=== PATIENT | male | born 1970 | race Caucasian/White ===

== ENCOUNTER 2018-07-07 15:45 | Inpatient (IN) | payer MEDICAID ==
[~2018-07-07] VITALS: Ht 182.9 cm; Wt 96.0 kg
[~2018-07-07 15:45] MED LIST: AMOX1TAB64 PO
[2018-07-07] MEDS ORDERED: VANCOMYCIN PER PHARMACY MC ONE (17:00)
[2018-07-07] MEDS ORDERED: PIPERACILLIN/TAZO/PMX 3.375GM 50 ML IV ONE (17:00)
[2018-07-07 17:12] LABS: BASOPHILS # (AUTO) 0.02 x10^3/uL (0-0.1); BASOPHILS % (AUTO) 0 % (0-1); EOSINOPHILS # (AUTO) 0.29 x10^3/uL (0-0.4); EOSINOPHILS % (AUTO) 3 % (1-7); LYMPHOCYTES # (AUTO) 2.52 x10^3/uL (1-3.4); LYMPHOCYTES % (AUTO) 29 % (22-44); MD NO; MEAN CORPUSCULAR HEMOGLOBIN 31.2 pg (27.5-34.5); MEAN CORPUSCULAR HGB CONC 33.2 g/dL (33.2-36.2); MEAN CORPUSCULAR VOLUME 94.2 fL (81-97); MEAN PLATELET VOLUME 8.7 fL (7.4-10.4); MONOCYTES # (AUTO) 0.65 x10^3/uL (0.2-0.8); MONOCYTES % (AUTO) 8 % (2-9); NEUTROPHILS # (AUTO) 5.13 x10^3/uL (1.8-6.8); NEUTROPHILS % (AUTO) 60 % (42-75); PLATELET COUNT 349 x10^3/uL (130-400); RED CELL DISTRIBUTION WIDTH 12.9 % (9.4-14.8)
[2018-07-07 17:21] LABS: ALBUMIN 4.4 g/dL (3.4-5.0); ANION GAP 5 mmol/L (5-15); CALCIUM 9.1 mg/dL (8.5-10.1); CHLORIDE 109 mmol/L (98-107); CREATININE 0.99 mg/dL (0.7-1.3)
[2018-07-07] MEDS ORDERED: VANCOMYCIN 1,800 MG in SODIUM CHLORIDE 0.9% 250 ML IV ONE (17:30)
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
--- NOTE | 2018-07-07 18:00 | NUR ---
BC X 2 DRAWN.
[2018-07-07] MEDS ORDERED: PIPERACILLIN/TAZO/PMX 3.375GM 50 ML ONE (18:03)
--- NOTE | 2018-07-07 18:25 | NUR ---
FREDIS AT BEDSIDE TO SEE PTEmily
[2018-07-07] MEDS ORDERED: SODIUM CHLORIDE 0.9% 2,000 ML IV SCH (19:03)
[2018-07-07] MEDS ORDERED: ACETAMINOPHEN 325 MG TABLET ONE (19:29)
[2018-07-07] MEDS ORDERED: ACETAMINOPHEN 325 MG TABLET PO PRN (19:30)
[2018-07-07 20:25] VITALS: BP 122/80
[2018-07-07 20:30] VITALS: BP 122/80
[2018-07-07] MEDS: AMPICILLIN/SULBACTAM 3 GM in SODIUM CHLORIDE 0.9% 100 ML IV SCH (21:53)
[2018-07-07] MEDS: NICOTINE 14MG/24 HR PATCH.TD24 TD SCH (21:53)
[2018-07-08 03:09] VITALS: BP 113/74
[2018-07-08] MEDS: AMPICILLIN/SULBACTAM 3 GM in SODIUM CHLORIDE 0.9% 100 ML IV SCH ×3 (04:04→18:35)
[2018-07-08 05:17] LABS: BASOPHILS # (AUTO) 0.02 x10^3/uL (0-0.1); BASOPHILS % (AUTO) 0 % (0-1); EOSINOPHILS # (AUTO) 0.28 x10^3/uL (0-0.4); EOSINOPHILS % (AUTO) 5 % (1-7); LYMPHOCYTES # (AUTO) 1.93 x10^3/uL (1-3.4); LYMPHOCYTES % (AUTO) 33 % (22-44); MD NO; MEAN CORPUSCULAR HEMOGLOBIN 31.9 pg (27.5-34.5); MEAN CORPUSCULAR HGB CONC 33.9 g/dL (33.2-36.2); MEAN CORPUSCULAR VOLUME 93.8 fL (81-97); MONOCYTES # (AUTO) 0.45 x10^3/uL (0.2-0.8); MONOCYTES % (AUTO) 8 % (2-9); NEUTROPHILS # (AUTO) 3.13 x10^3/uL (1.8-6.8); NEUTROPHILS % (AUTO) 54 % (42-75); PLATELET COUNT 310 x10^3/uL (130-400)
[2018-07-08 05:32] LABS: CHLORIDE 113 mmol/L (98-107)
[2018-07-08 05:39] LABS: ALANINE AMINOTRANSFERASE 31 U/L (12-78); ALBUMIN 3.4 g/dL (3.4-5.0); ALKALINE PHOSPHATASE 84 U/L (45-117); ANION GAP 5 mmol/L (5-15); BILIRUBIN,TOTAL 0.8 mg/dL (0.2-1.0); CALCIUM 8.2 mg/dL (8.5-10.1); CREATININE 0.91 mg/dL (0.7-1.3); TOTAL PROTEIN 6.6 g/dL (6.4-8.2)
[2018-07-08 06:56] VITALS: BP 118/82
[2018-07-08] MEDS: ENOXAPARIN 40 MG/0.4 ML SQ SCH (09:00)
[2018-07-08 12:00] VITALS: BP 122/80
[2018-07-08] MEDS ORDERED: LIDOCAINE 1%-EPI 1:100K, 30ML ONE (14:33)
[2018-07-08] MEDS ORDERED: MIDAZOLAM 1 MG/ML, 2ML ONE (14:39)
[2018-07-08] MEDS ORDERED: FENTANYL PF 100 MCG/2ML ONE (14:39)
[2018-07-08] MEDS ORDERED: PROPOFOL 10 MG/ML, 20ML ONE (14:45)
[2018-07-08 18:03] LABS: HCT (SEDRATE) 41.3 % (39.2-51.8)
[2018-07-08 18:40] VITALS: BP 111/66
[2018-07-08] MEDS: NICOTINE 14MG/24 HR PATCH.TD24 TD SCH ×2 (21:00→22:24)
[2018-07-09] MEDS: AMPICILLIN/SULBACTAM 3 GM in SODIUM CHLORIDE 0.9% 100 ML IV SCH ×4 (01:06→20:16)
[2018-07-09 01:34] VITALS: BP 125/71
[2018-07-09 05:04] LABS: BASOPHILS # (AUTO) 0.02 x10^3/uL (0-0.1); BASOPHILS % (AUTO) 0 % (0-1); EOSINOPHILS % (AUTO) 5 % (1-7); LYMPHOCYTES # (AUTO) 2.39 x10^3/uL (1-3.4); LYMPHOCYTES % (AUTO) 37 % (22-44); MD NO; MEAN CORPUSCULAR HEMOGLOBIN 31.1 pg (27.5-34.5); MEAN CORPUSCULAR HGB CONC 33.1 g/dL (33.2-36.2); MEAN PLATELET VOLUME 8.8 fL (7.4-10.4); MONOCYTES # (AUTO) 0.57 x10^3/uL (0.2-0.8); MONOCYTES % (AUTO) 9 % (2-9); NEUTROPHILS # (AUTO) 3.24 x10^3/uL (1.8-6.8); NEUTROPHILS % (AUTO) 50 % (42-75); PLATELET COUNT 304 x10^3/uL (130-400); RED BLOOD COUNT 4.63 x10^6/uL (4.38-5.82)
[2018-07-09 05:14] LABS: ANION GAP 3 mmol/L (5-15); CALCIUM 8.8 mg/dL (8.5-10.1); CHLORIDE 110 mmol/L (98-107)
[2018-07-09 07:35] VITALS: BP 122/81
[2018-07-09] MEDS: ENOXAPARIN 40 MG/0.4 ML SQ SCH (08:24)
[2018-07-09] MEDS: NICOTINE 14MG/24 HR PATCH.TD24 TD SCH (09:13)
[2018-07-09 13:56] VITALS: BP 125/79
[2018-07-09 18:27] VITALS: BP 128/80
[2018-07-10 01:26] VITALS: BP 130/75
[2018-07-10] MEDS: AMPICILLIN/SULBACTAM 3 GM in SODIUM CHLORIDE 0.9% 100 ML IV SCH ×4 (02:59→20:29)
[2018-07-10 06:55] VITALS: BP 120/72
[2018-07-10] MEDS: ENOXAPARIN 40 MG/0.4 ML SQ SCH (08:37)
[2018-07-10] MEDS ORDERED: MIDAZOLAM 1 MG/ML, 2ML ONE (09:39)
[2018-07-10] MEDS ORDERED: FENTANYL PF 250 MCG/5ML ONE (09:39)
[2018-07-10] MEDS ORDERED: OXYMETAZOLINE NASAL SPRAY 0.05%, 15ML ONE (11:20)
[2018-07-10] MEDS ORDERED: OXYcodone 5 MG/5 ML ORAL.SOL UDC PO PRN (11:30)
[2018-07-10] MEDS ORDERED: HYDROmorphone 2 MG/ML, 1ML IVPush PRN (11:30)
[2018-07-10] MEDS ORDERED: FENTANYL PF 100 MCG/2ML IV PRN (11:30)
[2018-07-10] MEDS ORDERED: MORPHINE SULFATE 4 MG/ML, 1ML IVPush PRN (11:30)
[2018-07-10] MEDS ORDERED: PROMETHAZINE 25 MG/ML, 1ML IV PRN (11:30)
[2018-07-10] MEDS ORDERED: ONDANSETRON ODT 8 MG PO PRN (11:30)
[2018-07-10] MEDS ORDERED: hydrALAzine 20 MG/ML, 1ML IV PRN (11:30)
[2018-07-10] MEDS ORDERED: MEPERIDINE/PF 25MG/0.5ML IVPush PRN (11:30)
[2018-07-10] MEDS ORDERED: LABETALOL 5MG/ML, 20ML IV PRN (11:30)
[2018-07-10] MEDS ORDERED: ONDANSETRON 2MG/ML, 2ML IV PRN (11:30)
[2018-07-10] MEDS ORDERED: PROMETHAZINE 25 MG SUPP PR PRN (11:30)
[2018-07-10] MEDS ORDERED: PROMETHAZINE 12.5 MG SUPP PR PRN (11:30)
[2018-07-10] MEDS ORDERED: PROMETHAZINE 25 MG/ML, 1ML IM PRN ×2 (11:30)
[2018-07-10] MEDS ORDERED: LIDOCAINE 1%-EPI 1:100K, 30ML ONE (11:33)
[2018-07-10] MEDS ORDERED: PROPOFOL 10 MG/ML, 20ML ONE (11:49)
[2018-07-10] MEDS ORDERED: ROCURONIUM 10MG/ML,5ML ONE (11:49)
[2018-07-10] MEDS ORDERED: GLYCOPYRROLATE 0.4 MG/2 ML, 2ML ONE (11:50)
[2018-07-10] MEDS ORDERED: NEOSTIGMINE 1 MG/ML, 10ML ONE (11:50)
[2018-07-10] MEDS ORDERED: LIDOCAINE 1%-EPI 1:100K, 30ML INFIL ONE (12:03)
[2018-07-10] MEDS ORDERED: OXYcodone 5 MG/5 ML ORAL.SOL UDC ONE (12:39)
[2018-07-10] MEDS ORDERED: FENTANYL PF 100 MCG/2ML ONE (12:39)
[2018-07-10] MEDS: IBUPROFEN 600 MG TABLET PO PRN (15:45)
[2018-07-10 16:15] VITALS: BP 132/84
[2018-07-10 19:17] VITALS: BP 98/58
[2018-07-10] MEDS: NICOTINE 14MG/24 HR PATCH.TD24 TD SCH (20:31)
[2018-07-11] MEDS: NICOTINE 14MG/24 HR PATCH.TD24 TD SCH (00:26)
[2018-07-11 00:41] VITALS: BP 103/61
[2018-07-11] MEDS: AMPICILLIN/SULBACTAM 3 GM in SODIUM CHLORIDE 0.9% 100 ML IV SCH ×2 (02:31→08:45)
[2018-07-11 07:03] VITALS: BP_SYST 105; BP_SYST 147; BP_DIAS 70; BP_DIAS 75
[2018-07-11] MEDS: ENOXAPARIN 40 MG/0.4 ML SQ SCH (07:57)
[2018-07-11] MEDS: IBUPROFEN 600 MG TABLET PO PRN (10:24)
[2018-07-11] MEDS ORDERED: PIPERACILLIN/TAZO/PMX 3.375GM 50 ML IV SCH (12:00)
[2018-07-11] MEDS: ERTAPENEM 1 GM in SODIUM CHLORIDE 0.9% 50 ML IV SCH (12:42)
[2018-07-11 13:46] VITALS: BP 112/71
[2018-07-11 19:19] VITALS: BP 119/80
[2018-07-12 01:20] VITALS: BP 104/68
[2018-07-12 07:00] VITALS: BP 119/79
[2018-07-12] MEDS: ENOXAPARIN 40 MG/0.4 ML SQ SCH (08:18)
[2018-07-12] MEDS: ERTAPENEM 1 GM in SODIUM CHLORIDE 0.9% 50 ML IV SCH (12:25)
[2018-07-12 14:54] VITALS: BP 129/82
[2018-07-12 18:36] VITALS: BP 103/71
[2018-07-12] MEDS: NICOTINE 14MG/24 HR PATCH.TD24 TD SCH (19:52)
[2018-07-13 00:13] VITALS: BP 106/68
[2018-07-13 05:09] LABS: BASOPHILS # (AUTO) 0.03 x10^3/uL (0-0.1); BASOPHILS % (AUTO) 0 % (0-1); EOSINOPHILS # (AUTO) 0.21 x10^3/uL (0-0.4); EOSINOPHILS % (AUTO) 3 % (1-7); LYMPHOCYTES # (AUTO) 1.89 x10^3/uL (1-3.4); LYMPHOCYTES % (AUTO) 24 % (22-44); MD NO; MEAN CORPUSCULAR HGB CONC 34.3 g/dL (33.2-36.2); MEAN CORPUSCULAR VOLUME 93.2 fL (81-97); MONOCYTES # (AUTO) 0.62 x10^3/uL (0.2-0.8); MONOCYTES % (AUTO) 8 % (2-9); NEUTROPHILS # (AUTO) 5.05 x10^3/uL (1.8-6.8); NEUTROPHILS % (AUTO) 65 % (42-75); PLATELET COUNT 320 x10^3/uL (130-400); RED BLOOD COUNT 5.02 x10^6/uL (4.38-5.82); RED CELL DISTRIBUTION WIDTH 12.5 % (9.4-14.8)
[2018-07-13] MEDS ORDERED: ONDANSETRON 2MG/ML, 2ML ONE (05:12)
[2018-07-13 05:20] LABS: CHLORIDE 108 mmol/L (98-107)
[2018-07-13 05:25] LABS: ALANINE AMINOTRANSFERASE 24 U/L (12-78); ALBUMIN 3.9 g/dL (3.4-5.0); ALKALINE PHOSPHATASE 86 U/L (45-117); ANION GAP 7 mmol/L (5-15); BILIRUBIN,TOTAL 0.4 mg/dL (0.2-1.0); C-REACTIVE PROTEIN, QUANT 0.55 mg/dL (0.02-0.49); CALCIUM 9.1 mg/dL (8.5-10.1); CREATININE 0.98 mg/dL (0.7-1.3); TOTAL PROTEIN 7.8 g/dL (6.4-8.2)
[2018-07-13] MEDS ORDERED: ONDANSETRON 2MG/ML, 2ML IVPush PRN (05:30)
[2018-07-13] MEDS ORDERED: ONDANSETRON ODT 4 MG PO PRN (05:30)
[2018-07-13 06:45] VITALS: BP 108/71
[2018-07-13] MEDS: ENOXAPARIN 40 MG/0.4 ML SQ SCH (09:00)
[2018-07-13] MEDS: ERTAPENEM 1 GM in SODIUM CHLORIDE 0.9% 50 ML IV SCH (11:32)
[2018-07-13 13:06] VITALS: BP 111/67
[2018-07-13 19:36] VITALS: BP 111/73
[2018-07-13] MEDS: NICOTINE 14MG/24 HR PATCH.TD24 TD SCH (21:47)
[2018-07-14 02:51] VITALS: BP 93/59
[2018-07-14 06:51] VITALS: BP 113/69
[2018-07-14] MEDS: ENOXAPARIN 40 MG/0.4 ML SQ SCH (09:35)
[2018-07-14] MEDS: ERTAPENEM 1 GM in SODIUM CHLORIDE 0.9% 50 ML IV SCH (12:20)
[2018-07-14 13:26] VITALS: BP 109/71
[2018-07-14 19:33] VITALS: BP 112/72
[2018-07-14] MEDS: NICOTINE 14MG/24 HR PATCH.TD24 TD SCH (19:39)
[2018-07-15] MEDS ORDERED: CATHFLO-ALTEPLASE 2 MG/2 ML CATHFLUSH ONE (00:30)
[2018-07-15 02:10] VITALS: BP 101/67
[2018-07-15 07:41] VITALS: BP 112/74
[2018-07-15] MEDS: ENOXAPARIN 40 MG/0.4 ML SQ SCH (08:10)
[2018-07-15] MEDS: ERTAPENEM 1 GM in SODIUM CHLORIDE 0.9% 50 ML IV SCH (11:30)
[2018-07-15 14:08] VITALS: BP 120/74
[2018-07-15 19:30] VITALS: BP 115/71
[2018-07-15] MEDS: NICOTINE 14MG/24 HR PATCH.TD24 TD SCH (20:15)
[2018-07-16 01:56] VITALS: BP 104/67
[2018-07-16 07:23] VITALS: BP 112/73
[2018-07-16] MEDS: ENOXAPARIN 40 MG/0.4 ML SQ SCH (08:15)
[2018-07-16] MEDS: ERTAPENEM 1 GM in SODIUM CHLORIDE 0.9% 50 ML IV SCH (11:40)
[2018-07-16 13:42] VITALS: BP 115/78
[2018-07-16 20:04] VITALS: BP 114/78
[2018-07-16] MEDS: NICOTINE 14MG/24 HR PATCH.TD24 TD SCH (20:15)
[2018-07-17 00:30] VITALS: BP 120/68
[2018-07-17 06:46] VITALS: BP 118/75
[2018-07-17] MEDS: ENOXAPARIN 40 MG/0.4 ML SQ SCH (08:17)
[2018-07-17] MEDS: ERTAPENEM 1 GM in SODIUM CHLORIDE 0.9% 50 ML IV SCH (11:18)
[2018-07-17 12:50] VITALS: BP 127/79
[2018-07-17 19:32] VITALS: BP 132/66
[2018-07-17] MEDS: NICOTINE 14MG/24 HR PATCH.TD24 TD SCH (20:01)
[2018-07-18 00:05] VITALS: BP 136/61
[2018-07-18 06:57] VITALS: BP 117/80
[2018-07-18] MEDS: ENOXAPARIN 40 MG/0.4 ML SQ SCH (09:18)
[2018-07-18] MEDS: ERTAPENEM 1 GM in SODIUM CHLORIDE 0.9% 50 ML IV SCH (12:43)
[2018-07-18 13:28] VITALS: BP 112/73
[2018-07-18 18:53] VITALS: BP 95/57
[2018-07-18] MEDS: NICOTINE 14MG/24 HR PATCH.TD24 TD SCH (20:30)
[2018-07-19 01:05] VITALS: BP 104/70
[2018-07-19 06:44] LABS: BASOPHILS # (AUTO) 0.02 x10^3/uL (0-0.1); BASOPHILS % (AUTO) 0 % (0-1); EOSINOPHILS # (AUTO) 0.23 x10^3/uL (0-0.4); EOSINOPHILS % (AUTO) 4 % (1-7); HCT (SEDRATE) 45.2 % (39.2-51.8); LYMPHOCYTES % (AUTO) 38 % (22-44); MD NO; MEAN CORPUSCULAR HEMOGLOBIN 32.4 pg (27.5-34.5); MEAN CORPUSCULAR HGB CONC 34.8 g/dL (33.2-36.2); MEAN PLATELET VOLUME 8.9 fL (7.4-10.4); MONOCYTES % (AUTO) 8 % (2-9); NEUTROPHILS # (AUTO) 3.11 x10^3/uL (1.8-6.8); NEUTROPHILS % (AUTO) 50 % (42-75); PLATELET COUNT 297 x10^3/uL (130-400); RED BLOOD COUNT 4.85 x10^6/uL (4.38-5.82); RED CELL DISTRIBUTION WIDTH 12.7 % (9.4-14.8)
[2018-07-19 06:59] LABS: ALANINE AMINOTRANSFERASE 21 U/L (12-78); ALBUMIN 3.8 g/dL (3.4-5.0); ANION GAP 6 mmol/L (5-15); C-REACTIVE PROTEIN, QUANT 0.23 mg/dL (0.02-0.49); CALCIUM 8.8 mg/dL (8.5-10.1); CHLORIDE 106 mmol/L (98-107); CREATININE 0.94 mg/dL (0.7-1.3)
[2018-07-19 07:01] LABS: ALKALINE PHOSPHATASE 89 U/L (45-117); BILIRUBIN,TOTAL 0.7 mg/dL (0.2-1.0); TOTAL PROTEIN 7.7 g/dL (6.4-8.2)
[2018-07-19] MEDS: ENOXAPARIN 40 MG/0.4 ML SQ SCH (07:07)
[2018-07-19 09:04] VITALS: BP 115/77
[2018-07-19] MEDS: ERTAPENEM 1 GM in SODIUM CHLORIDE 0.9% 50 ML IV SCH (12:27)
[2018-07-19 12:56] VITALS: BP 116/73
[2018-07-19] MEDS ORDERED: IBUPROFEN 600 MG TABLET PO PRN (17:00)
[2018-07-19 20:28] VITALS: BP 105/67
[2018-07-19] MEDS: OMEPRAZOLE 20 MG CAPSULE.DR PO SCH (20:51)
[2018-07-19] MEDS: NICOTINE 14MG/24 HR PATCH.TD24 TD SCH (20:51)
[2018-07-20 02:24] VITALS: BP 101/63
[2018-07-20] MEDS: OMEPRAZOLE 20 MG CAPSULE.DR PO SCH ×2 (05:34→19:57)
[2018-07-20 06:10] LABS: BASOPHILS # (AUTO) 0.01 x10^3/uL (0-0.1); BASOPHILS % (AUTO) 0 % (0-1); EOSINOPHILS # (AUTO) 0.22 x10^3/uL (0-0.4); EOSINOPHILS % (AUTO) 4 % (1-7); LYMPHOCYTES # (AUTO) 1.89 x10^3/uL (1-3.4); LYMPHOCYTES % (AUTO) 32 % (22-44); MD NO; MEAN CORPUSCULAR HEMOGLOBIN 31.7 pg (27.5-34.5); MEAN CORPUSCULAR HGB CONC 34.2 g/dL (33.2-36.2); MEAN CORPUSCULAR VOLUME 92.9 fL (81-97); MEAN PLATELET VOLUME 8.6 fL (7.4-10.4); MONOCYTES # (AUTO) 0.49 x10^3/uL (0.2-0.8); MONOCYTES % (AUTO) 8 % (2-9); NEUTROPHILS # (AUTO) 3.26 x10^3/uL (1.8-6.8); NEUTROPHILS % (AUTO) 56 % (42-75); PLATELET COUNT 287 x10^3/uL (130-400); RED BLOOD COUNT 4.68 x10^6/uL (4.38-5.82); RED CELL DISTRIBUTION WIDTH 12.4 % (9.4-14.8)
[2018-07-20 06:19] LABS: ALBUMIN 3.6 g/dL (3.4-5.0); ANION GAP 6 mmol/L (5-15); CALCIUM 8.6 mg/dL (8.5-10.1); CHLORIDE 108 mmol/L (98-107)
[2018-07-20 06:23] LABS: ALANINE AMINOTRANSFERASE 21 U/L (12-78); ALKALINE PHOSPHATASE 89 U/L (45-117); BILIRUBIN,TOTAL 0.7 mg/dL (0.2-1.0); C-REACTIVE PROTEIN, QUANT 0.24 mg/dL (0.02-0.49); CREATININE 1.04 mg/dL (0.7-1.3); TOTAL PROTEIN 7.4 g/dL (6.4-8.2)
[2018-07-20 06:56] LABS: HCT (SEDRATE) 43.4 % (39.2-51.8)
[2018-07-20 07:29] VITALS: BP 113/72
[2018-07-20] MEDS: ENOXAPARIN 40 MG/0.4 ML SQ SCH (07:40)
[2018-07-20 12:24] VITALS: BP 119/80
[2018-07-20] MEDS: ERTAPENEM 1 GM in SODIUM CHLORIDE 0.9% 50 ML IV SCH (12:24)
[2018-07-20 19:31] VITALS: BP 120/81
[2018-07-20] MEDS: NICOTINE 14MG/24 HR PATCH.TD24 TD SCH (19:57)
[2018-07-21 01:37] VITALS: BP 123/86
[2018-07-21] MEDS: OMEPRAZOLE 20 MG CAPSULE.DR PO SCH ×2 (06:27→16:06)
[2018-07-21 06:55] VITALS: BP 94/61
[2018-07-21] MEDS: ENOXAPARIN 40 MG/0.4 ML SQ SCH (08:47)
[2018-07-21] MEDS: ERTAPENEM 1 GM in SODIUM CHLORIDE 0.9% 50 ML IV SCH (12:42)
[2018-07-21 16:00] VITALS: BP 109/74
[2018-07-21 18:44] VITALS: BP 102/62
[2018-07-21] MEDS: NICOTINE 14MG/24 HR PATCH.TD24 TD SCH (19:16)
[2018-07-22 02:23] VITALS: BP 117/63
[2018-07-22] MEDS: OMEPRAZOLE 20 MG CAPSULE.DR PO SCH ×2 (06:21→21:30)
[2018-07-22 07:27] VITALS: BP 116/76
[2018-07-22] MEDS: ENOXAPARIN 40 MG/0.4 ML SQ SCH (09:00)
[2018-07-22 09:12] LABS: CREATININE 0.99 mg/dL (0.7-1.3)
[2018-07-22] MEDS: ERTAPENEM 1 GM in SODIUM CHLORIDE 0.9% 50 ML IV SCH (12:01)
[2018-07-22 14:31] VITALS: BP 116/73
[2018-07-22 14:32] VITALS: BP 116/73
[2018-07-22 18:34] VITALS: BP 102/61
[2018-07-22] MEDS: NICOTINE 14MG/24 HR PATCH.TD24 TD SCH (21:32)
[2018-07-23 02:00] VITALS: BP 112/62
[2018-07-23] MEDS: OMEPRAZOLE 20 MG CAPSULE.DR PO SCH ×2 (05:48→20:18)
[2018-07-23 06:20] VITALS: BP 116/75
[2018-07-23] MEDS: ENOXAPARIN 40 MG/0.4 ML SQ SCH ×2 (09:00→10:55)
[2018-07-23] MEDS: AMPICILLIN/SULBACTAM 3 GM in SODIUM CHLORIDE 0.9% 100 ML IV SCH ×3 (10:55→22:30)
[2018-07-23 14:10] VITALS: BP 101/65
[2018-07-23 19:05] VITALS: BP 111/71
[2018-07-23] MEDS: NICOTINE 14MG/24 HR PATCH.TD24 TD SCH (20:18)
[2018-07-24 01:31] VITALS: BP 109/72
[2018-07-24] MEDS: AMPICILLIN/SULBACTAM 3 GM in SODIUM CHLORIDE 0.9% 100 ML IV SCH ×4 (04:27→22:25)
[2018-07-24] MEDS: OMEPRAZOLE 20 MG CAPSULE.DR PO SCH ×3 (04:28→21:10)
[2018-07-24 06:35] VITALS: BP 113/76
[2018-07-24] MEDS: ENOXAPARIN 40 MG/0.4 ML SQ SCH (09:00)
[2018-07-24 12:56] VITALS: BP 112/73
[2018-07-24 18:48] VITALS: BP 101/66
[2018-07-24] MEDS: NICOTINE 14MG/24 HR PATCH.TD24 TD SCH (21:11)
[2018-07-25 02:50] VITALS: BP 130/87
[2018-07-25] MEDS: AMPICILLIN/SULBACTAM 3 GM in SODIUM CHLORIDE 0.9% 100 ML IV SCH ×4 (04:26→23:51)
[2018-07-25] MEDS: OMEPRAZOLE 20 MG CAPSULE.DR PO SCH ×2 (04:57→20:17)
[2018-07-25 06:35] VITALS: BP 103/71
[2018-07-25 06:35] LABS: CREATININE 1.01 mg/dL (0.7-1.3)
[2018-07-25] MEDS: ENOXAPARIN 40 MG/0.4 ML SQ SCH (11:18)
[2018-07-25 12:56] VITALS: BP 120/76
[2018-07-25 19:59] VITALS: BP 120/70
[2018-07-25] MEDS: NICOTINE 14MG/24 HR PATCH.TD24 TD SCH (20:37)
[2018-07-26 02:00] VITALS: BP 108/73
[2018-07-26] MEDS: OMEPRAZOLE 20 MG CAPSULE.DR PO SCH ×2 (04:17→20:38)
[2018-07-26 04:41] LABS: BASOPHILS # (AUTO) 0.03 x10^3/uL (0-0.1); BASOPHILS % (AUTO) 1 % (0-1); EOSINOPHILS # (AUTO) 0.35 x10^3/uL (0-0.4); EOSINOPHILS % (AUTO) 6 % (1-7); HCT (SEDRATE) 43.1 % (39.2-51.8); LYMPHOCYTES # (AUTO) 2.36 x10^3/uL (1-3.4); LYMPHOCYTES % (AUTO) 38 % (22-44); MD NO; MEAN CORPUSCULAR HEMOGLOBIN 31.4 pg (27.5-34.5); MEAN CORPUSCULAR HGB CONC 33.9 g/dL (33.2-36.2); MEAN CORPUSCULAR VOLUME 92.8 fL (81-97); MEAN PLATELET VOLUME 8.8 fL (7.4-10.4); MONOCYTES # (AUTO) 0.47 x10^3/uL (0.2-0.8); MONOCYTES % (AUTO) 8 % (2-9); NEUTROPHILS # (AUTO) 2.94 x10^3/uL (1.8-6.8); NEUTROPHILS % (AUTO) 48 % (42-75); PLATELET COUNT 272 x10^3/uL (130-400); RED BLOOD COUNT 4.65 x10^6/uL (4.38-5.82); RED CELL DISTRIBUTION WIDTH 12.1 % (9.4-14.8)
[2018-07-26 04:53] LABS: ALANINE AMINOTRANSFERASE 26 U/L (12-78); ALBUMIN 3.7 g/dL (3.4-5.0); ANION GAP 5 mmol/L (5-15); C-REACTIVE PROTEIN, QUANT 0.23 mg/dL (0.02-0.49); CHLORIDE 109 mmol/L (98-107); CREATININE 0.99 mg/dL (0.7-1.3)
[2018-07-26 04:55] LABS: ALKALINE PHOSPHATASE 83 U/L (45-117); BILIRUBIN,TOTAL 0.5 mg/dL (0.2-1.0); TOTAL PROTEIN 7.3 g/dL (6.4-8.2)
[2018-07-26] MEDS: AMPICILLIN/SULBACTAM 3 GM in SODIUM CHLORIDE 0.9% 100 ML IV SCH ×3 (05:56→17:36)
[2018-07-26 07:27] VITALS: BP 101/66
[2018-07-26] MEDS: ENOXAPARIN 40 MG/0.4 ML SQ SCH (08:02)
[2018-07-26 13:40] VITALS: BP 108/69
[2018-07-26 18:55] VITALS: BP 123/82
[2018-07-26] MEDS: NICOTINE 14MG/24 HR PATCH.TD24 TD SCH (20:38)
[2018-07-27] MEDS: AMPICILLIN/SULBACTAM 3 GM in SODIUM CHLORIDE 0.9% 100 ML IV SCH ×5 (00:01→23:49)
[2018-07-27 03:10] VITALS: BP 93/68
[2018-07-27] MEDS: OMEPRAZOLE 20 MG CAPSULE.DR PO SCH ×2 (06:01→17:15)
[2018-07-27 06:29] VITALS: BP 97/56
[2018-07-27 06:30] VITALS: BP 113/76
[2018-07-27] MEDS: ENOXAPARIN 40 MG/0.4 ML SQ SCH (09:48)
[2018-07-27 14:07] VITALS: BP 111/71
[2018-07-27 18:25] VITALS: BP 93/56
[2018-07-27] MEDS: NICOTINE 14MG/24 HR PATCH.TD24 TD SCH (19:28)
[2018-07-28 02:48] VITALS: BP 93/59
[2018-07-28] MEDS: AMPICILLIN/SULBACTAM 3 GM in SODIUM CHLORIDE 0.9% 100 ML IV SCH ×3 (05:45→19:35)
[2018-07-28] MEDS: OMEPRAZOLE 20 MG CAPSULE.DR PO SCH ×2 (05:46→15:40)
[2018-07-28 06:18] LABS: CREATININE 1.09 mg/dL (0.7-1.3)
[2018-07-28 06:40] VITALS: BP 113/75
[2018-07-28] MEDS: ENOXAPARIN 40 MG/0.4 ML SQ SCH (08:03)
[2018-07-28 12:10] VITALS: BP 115/87
[2018-07-28] MEDS: NICOTINE 14MG/24 HR PATCH.TD24 TD SCH (19:35)
[2018-07-28 19:38] VITALS: BP 100/67
[2018-07-29] MEDS: AMPICILLIN/SULBACTAM 3 GM in SODIUM CHLORIDE 0.9% 100 ML IV SCH ×5 (00:57→23:53)
[2018-07-29 01:44] VITALS: BP 119/78
[2018-07-29] MEDS: OMEPRAZOLE 20 MG CAPSULE.DR PO SCH ×2 (06:31→20:50)
[2018-07-29 07:26] VITALS: BP 116/73
[2018-07-29] MEDS: ENOXAPARIN 40 MG/0.4 ML SQ SCH (08:08)
[2018-07-29 13:05] VITALS: BP 109/71
[2018-07-29] MEDS ORDERED: ONDANSETRON ODT 4 MG PO ONE (15:30)
[2018-07-29 19:31] VITALS: BP 117/72
[2018-07-29] MEDS: NICOTINE 14MG/24 HR PATCH.TD24 TD SCH (20:51)
[2018-07-30 01:12] VITALS: BP 122/85
[2018-07-30] MEDS: AMPICILLIN/SULBACTAM 3 GM in SODIUM CHLORIDE 0.9% 100 ML IV SCH ×4 (05:36→23:44)
[2018-07-30] MEDS: OMEPRAZOLE 20 MG CAPSULE.DR PO SCH ×2 (05:36→19:49)
[2018-07-30 06:30] VITALS: BP 91/62
[2018-07-30] MEDS: ENOXAPARIN 40 MG/0.4 ML SQ SCH (08:54)
[2018-07-30 12:22] VITALS: BP 107/83
[2018-07-30 18:57] VITALS: BP 116/72
[2018-07-30] MEDS: NICOTINE 14MG/24 HR PATCH.TD24 TD SCH (19:49)
[2018-07-31 00:03] VITALS: BP 96/59
[2018-07-31 05:26] LABS: CREATININE 1.07 mg/dL (0.7-1.3)
[2018-07-31] MEDS: AMPICILLIN/SULBACTAM 3 GM in SODIUM CHLORIDE 0.9% 100 ML IV SCH ×3 (05:32→18:12)
[2018-07-31] MEDS: OMEPRAZOLE 20 MG CAPSULE.DR PO SCH ×2 (05:32→21:37)
[2018-07-31 07:00] VITALS: BP 112/74
[2018-07-31] MEDS: ENOXAPARIN 40 MG/0.4 ML SQ SCH (09:00)
[2018-07-31 13:20] VITALS: BP 139/69
[2018-07-31 18:20] VITALS: BP 119/78
[2018-07-31] MEDS: NICOTINE 14MG/24 HR PATCH.TD24 TD SCH (21:37)
[2018-08-01] MEDS: AMPICILLIN/SULBACTAM 3 GM in SODIUM CHLORIDE 0.9% 100 ML IV SCH ×5 (00:05→23:57)
[2018-08-01 01:08] VITALS: BP 126/66
[2018-08-01] MEDS: OMEPRAZOLE 20 MG CAPSULE.DR PO SCH ×2 (05:56→20:54)
[2018-08-01 07:00] VITALS: BP 102/67
[2018-08-01] MEDS: ENOXAPARIN 40 MG/0.4 ML SQ SCH (09:00)
[2018-08-01 14:00] VITALS: BP 110/80
[2018-08-01 18:25] VITALS: BP 95/59
[2018-08-01] MEDS: NICOTINE 14MG/24 HR PATCH.TD24 TD SCH (20:54)
[2018-08-02 00:25] VITALS: BP 102/68
[2018-08-02] MEDS: AMPICILLIN/SULBACTAM 3 GM in SODIUM CHLORIDE 0.9% 100 ML IV SCH ×3 (06:00→18:23)
[2018-08-02] MEDS: OMEPRAZOLE 20 MG CAPSULE.DR PO SCH ×2 (06:00→21:04)
[2018-08-02 08:00] VITALS: BP 108/72
[2018-08-02] MEDS: ENOXAPARIN 40 MG/0.4 ML SQ SCH (09:40)
[2018-08-02 14:00] VITALS: BP 138/78
[2018-08-02 18:56] VITALS: BP 104/68
[2018-08-02] MEDS: NICOTINE 14MG/24 HR PATCH.TD24 TD SCH (21:04)
[2018-08-03] MEDS: AMPICILLIN/SULBACTAM 3 GM in SODIUM CHLORIDE 0.9% 100 ML IV SCH ×4 (00:16→20:19)
[2018-08-03 03:24] VITALS: BP 100/63
[2018-08-03 05:40] LABS: BASOPHILS # (AUTO) 0.01 x10^3/uL (0-0.1); BASOPHILS % (AUTO) 0 % (0-1); EOSINOPHILS # (AUTO) 0.29 x10^3/uL (0-0.4); EOSINOPHILS % (AUTO) 6 % (1-7); LYMPHOCYTES # (AUTO) 1.94 x10^3/uL (1-3.4); LYMPHOCYTES % (AUTO) 39 % (22-44); MD NO; MEAN CORPUSCULAR HEMOGLOBIN 31.6 pg (27.5-34.5); MEAN CORPUSCULAR HGB CONC 33.9 g/dL (33.2-36.2); MEAN CORPUSCULAR VOLUME 93.4 fL (81-97); MEAN PLATELET VOLUME 9.4 fL (7.4-10.4); MONOCYTES # (AUTO) 0.37 x10^3/uL (0.2-0.8); MONOCYTES % (AUTO) 8 % (2-9); NEUTROPHILS # (AUTO) 2.32 x10^3/uL (1.8-6.8); NEUTROPHILS % (AUTO) 47 % (42-75); PLATELET COUNT 247 x10^3/uL (130-400); RED BLOOD COUNT 4.52 x10^6/uL (4.38-5.82); RED CELL DISTRIBUTION WIDTH 12.5 % (9.4-14.8)
[2018-08-03 05:46] LABS: CALCIUM 9.1 mg/dL (8.5-10.1); CHLORIDE 108 mmol/L (98-107); HCT (SEDRATE) 42.2 % (39.2-51.8)
[2018-08-03 05:52] LABS: ALANINE AMINOTRANSFERASE 28 U/L (12-78); ALBUMIN 3.9 g/dL (3.4-5.0); ALKALINE PHOSPHATASE 74 U/L (45-117); ANION GAP 7 mmol/L (5-15); BILIRUBIN,TOTAL 0.7 mg/dL (0.2-1.0); C-REACTIVE PROTEIN, QUANT 0.18 mg/dL (0.02-0.49); CREATININE 1.11 mg/dL (0.7-1.3); TOTAL PROTEIN 7.3 g/dL (6.4-8.2)
[2018-08-03] MEDS: OMEPRAZOLE 20 MG CAPSULE.DR PO SCH ×2 (05:53→16:30)
[2018-08-03 07:10] VITALS: BP 91/58
[2018-08-03 08:47] VITALS: BP 130/65
[2018-08-03] MEDS: ENOXAPARIN 40 MG/0.4 ML SQ SCH (09:00)
[2018-08-03 14:25] VITALS: BP 107/70
[2018-08-03] MEDS: NICOTINE 14MG/24 HR PATCH.TD24 TD SCH (20:19)
[2018-08-03 20:26] VITALS: BP 109/70
[2018-08-04] MEDS: AMPICILLIN/SULBACTAM 3 GM in SODIUM CHLORIDE 0.9% 100 ML IV SCH ×4 (02:19→20:34)
[2018-08-04 02:33] VITALS: BP 101/65
[2018-08-04] MEDS: OMEPRAZOLE 20 MG CAPSULE.DR PO SCH ×2 (05:27→17:31)
[2018-08-04 07:03] VITALS: BP 116/80
[2018-08-04] MEDS: ENOXAPARIN 40 MG/0.4 ML SQ SCH (07:40)
[2018-08-04 13:52] VITALS: BP 114/72
[2018-08-04 19:40] VITALS: BP 108/70
[2018-08-04] MEDS: NICOTINE 14MG/24 HR PATCH.TD24 TD SCH (20:34)
[2018-08-05] MEDS: AMPICILLIN/SULBACTAM 3 GM in SODIUM CHLORIDE 0.9% 100 ML IV SCH ×4 (02:00→20:24)
[2018-08-05 02:14] VITALS: BP 99/66
[2018-08-05] MEDS: OMEPRAZOLE 20 MG CAPSULE.DR PO SCH ×2 (05:39→15:43)
[2018-08-05 08:33] VITALS: BP 108/66
[2018-08-05] MEDS: ENOXAPARIN 40 MG/0.4 ML SQ SCH (08:34)
[2018-08-05 14:16] VITALS: BP 104/62
[2018-08-05 19:10] VITALS: BP 98/62
[2018-08-05] MEDS: NICOTINE 14MG/24 HR PATCH.TD24 TD SCH (20:24)
[2018-08-06 01:01] VITALS: BP 105/69
[2018-08-06] MEDS: AMPICILLIN/SULBACTAM 3 GM in SODIUM CHLORIDE 0.9% 100 ML IV SCH ×2 (02:39→08:05)
[2018-08-06] MEDS: OMEPRAZOLE 20 MG CAPSULE.DR PO SCH ×2 (05:25→15:51)
[2018-08-06 06:24] LABS: CREATININE 1.12 mg/dL (0.7-1.3)
[2018-08-06 07:08] VITALS: BP 120/78
[2018-08-06] MEDS: ENOXAPARIN 40 MG/0.4 ML SQ SCH (08:05)
[2018-08-06] MEDS: AMPICILLIN/SULBACTAM 3 GM in SODIUM CHLORIDE 0.9% 50 ML IV SCH ×2 (13:56→19:30)
[2018-08-06 15:20] VITALS: BP 109/68
[2018-08-06 18:50] VITALS: BP 103/68
[2018-08-06] MEDS: NICOTINE 14MG/24 HR PATCH.TD24 TD SCH (19:30)
[2018-08-07 01:27] VITALS: BP 96/60
[2018-08-07] MEDS: AMPICILLIN/SULBACTAM 3 GM in SODIUM CHLORIDE 0.9% 50 ML IV SCH ×4 (02:03→21:04)
[2018-08-07] MEDS: OMEPRAZOLE 20 MG CAPSULE.DR PO SCH ×2 (06:35→15:58)
[2018-08-07 06:45] VITALS: BP 106/72
[2018-08-07] MEDS: ENOXAPARIN 40 MG/0.4 ML SQ SCH (09:00)
[2018-08-07 12:00] VITALS: BP 127/87
[2018-08-07 18:38] VITALS: BP 94/56
[2018-08-07] MEDS: NICOTINE 14MG/24 HR PATCH.TD24 TD SCH (21:08)
[2018-08-08 00:15] VITALS: BP 95/60
[2018-08-08] MEDS: AMPICILLIN/SULBACTAM 3 GM in SODIUM CHLORIDE 0.9% 50 ML IV SCH ×4 (02:29→19:57)
[2018-08-08] MEDS: OMEPRAZOLE 20 MG CAPSULE.DR PO SCH ×2 (06:18→15:13)
[2018-08-08 07:39] VITALS: BP 94/63
[2018-08-08] MEDS: ENOXAPARIN 40 MG/0.4 ML SQ SCH (10:23)
[2018-08-08 12:55] VITALS: BP 137/95
[2018-08-08 19:07] VITALS: BP 115/54
[2018-08-08] MEDS: NICOTINE 14MG/24 HR PATCH.TD24 TD SCH (19:57)
[2018-08-09] MEDS: AMPICILLIN/SULBACTAM 3 GM in SODIUM CHLORIDE 0.9% 50 ML IV SCH ×4 (01:43→20:45)
[2018-08-09 01:50] VITALS: BP 133/96
[2018-08-09 04:27] LABS: CREATININE 1.14 mg/dL (0.7-1.3)
[2018-08-09] MEDS: OMEPRAZOLE 20 MG CAPSULE.DR PO SCH ×2 (05:23→16:07)
[2018-08-09] MEDS: ENOXAPARIN 40 MG/0.4 ML SQ SCH (07:36)
[2018-08-09 07:57] VITALS: BP 93/50
[2018-08-09 13:18] VITALS: BP 115/65
[2018-08-09 20:00] VITALS: BP 123/61
[2018-08-09] MEDS: NICOTINE 14MG/24 HR PATCH.TD24 TD SCH (20:45)
[2018-08-10] MEDS: AMPICILLIN/SULBACTAM 3 GM in SODIUM CHLORIDE 0.9% 50 ML IV SCH ×4 (02:01→20:19)
[2018-08-10 02:28] VITALS: BP 113/73
[2018-08-10 04:33] LABS: HCT (SEDRATE) 43.5 % (39.2-51.8)
[2018-08-10 04:34] LABS: BASOPHILS # (AUTO) 0.01 x10^3/uL (0-0.1); BASOPHILS % (AUTO) 0 % (0-1); EOSINOPHILS # (AUTO) 0.29 x10^3/uL (0-0.4); EOSINOPHILS % (AUTO) 6 % (1-7); LYMPHOCYTES # (AUTO) 1.61 x10^3/uL (1-3.4); LYMPHOCYTES % (AUTO) 32 % (22-44); MD NO; MEAN CORPUSCULAR HEMOGLOBIN 32.1 pg (27.5-34.5); MEAN CORPUSCULAR HGB CONC 34.2 g/dL (33.2-36.2); MEAN CORPUSCULAR VOLUME 93.7 fL (81-97); MEAN PLATELET VOLUME 9.5 fL (7.4-10.4); MONOCYTES % (AUTO) 8 % (2-9); NEUTROPHILS # (AUTO) 2.75 x10^3/uL (1.8-6.8); NEUTROPHILS % (AUTO) 54 % (42-75); PLATELET COUNT 221 x10^3/uL (130-400); RED BLOOD COUNT 4.66 x10^6/uL (4.38-5.82); RED CELL DISTRIBUTION WIDTH 12.1 % (9.4-14.8)
[2018-08-10 04:45] LABS: ALBUMIN 3.8 g/dL (3.4-5.0); ANION GAP 6 mmol/L (5-15); C-REACTIVE PROTEIN, QUANT 0.32 mg/dL (0.02-0.49); CHLORIDE 107 mmol/L (98-107)
[2018-08-10 04:48] LABS: ALANINE AMINOTRANSFERASE 31 U/L (12-78); ALKALINE PHOSPHATASE 73 U/L (45-117); BILIRUBIN,TOTAL 0.5 mg/dL (0.2-1.0); CREATININE 1.03 mg/dL (0.7-1.3); TOTAL PROTEIN 7.2 g/dL (6.4-8.2)
[2018-08-10] MEDS: OMEPRAZOLE 20 MG CAPSULE.DR PO SCH ×2 (05:45→14:14)
[2018-08-10 07:01] VITALS: BP 131/84
[2018-08-10] MEDS: ENOXAPARIN 40 MG/0.4 ML SQ SCH (07:40)
[2018-08-10 14:26] VITALS: BP 103/62
[2018-08-10 19:07] VITALS: BP 100/65
[2018-08-11] MEDS: NICOTINE 14MG/24 HR PATCH.TD24 TD SCH ×2 (00:09→20:29)
[2018-08-11 01:02] VITALS: BP 113/77
[2018-08-11] MEDS: AMPICILLIN/SULBACTAM 3 GM in SODIUM CHLORIDE 0.9% 50 ML IV SCH ×2 (02:05→07:59)
[2018-08-11] MEDS: OMEPRAZOLE 20 MG CAPSULE.DR PO SCH ×2 (05:38→15:41)
[2018-08-11 07:45] VITALS: BP 97/61
[2018-08-11] MEDS: ENOXAPARIN 40 MG/0.4 ML SQ SCH (07:59)
[2018-08-11 12:45] VITALS: BP 100/62
[2018-08-11] MEDS: AMPICILLIN/SULBACTAM 3 GM in SODIUM CHLORIDE 0.9% 100 ML IV SCH ×2 (14:13→19:49)
[2018-08-11 20:23] VITALS: BP 119/74
[2018-08-12 01:33] VITALS: BP 108/65
[2018-08-12] MEDS: AMPICILLIN/SULBACTAM 3 GM in SODIUM CHLORIDE 0.9% 100 ML IV SCH ×4 (01:55→20:00)
[2018-08-12] MEDS: OMEPRAZOLE 20 MG CAPSULE.DR PO SCH ×2 (06:04→18:20)
[2018-08-12 07:08] VITALS: BP 109/69
[2018-08-12] MEDS: ENOXAPARIN 40 MG/0.4 ML SQ SCH (07:35)
[2018-08-12 13:09] VITALS: BP 112/73
[2018-08-12 19:56] VITALS: BP 103/69
[2018-08-12] MEDS: NICOTINE 14MG/24 HR PATCH.TD24 TD SCH (20:03)
[2018-08-13 02:12] VITALS: BP 128/85
[2018-08-13] MEDS: AMPICILLIN/SULBACTAM 3 GM in SODIUM CHLORIDE 0.9% 100 ML IV SCH ×4 (02:29→20:24)
[2018-08-13] MEDS: OMEPRAZOLE 20 MG CAPSULE.DR PO SCH ×2 (06:02→17:36)
[2018-08-13 07:42] VITALS: BP 104/59
[2018-08-13] MEDS: ENOXAPARIN 40 MG/0.4 ML SQ SCH (08:38)
[2018-08-13 13:51] VITALS: BP 117/75
[2018-08-13 19:53] VITALS: BP 124/74
[2018-08-13] MEDS: NICOTINE 14MG/24 HR PATCH.TD24 TD SCH (20:25)
[2018-08-14 00:59] VITALS: BP 118/89
[2018-08-14] MEDS: AMPICILLIN/SULBACTAM 3 GM in SODIUM CHLORIDE 0.9% 100 ML IV SCH ×4 (02:34→20:01)
[2018-08-14 06:51] VITALS: BP 109/75
[2018-08-14] MEDS: OMEPRAZOLE 20 MG CAPSULE.DR PO SCH ×2 (08:10→16:00)
[2018-08-14] MEDS: ENOXAPARIN 40 MG/0.4 ML SQ SCH (08:11)
[2018-08-14 13:16] VITALS: BP 103/62
[2018-08-14 18:35] VITALS: BP 107/72
[2018-08-14] MEDS: NICOTINE 14MG/24 HR PATCH.TD24 TD SCH (20:01)
[2018-08-15 01:48] VITALS: BP 109/70
[2018-08-15] MEDS: AMPICILLIN/SULBACTAM 3 GM in SODIUM CHLORIDE 0.9% 100 ML IV SCH ×5 (02:27→21:36)
[2018-08-15] MEDS: OMEPRAZOLE 20 MG CAPSULE.DR PO SCH ×3 (06:00→21:26)
[2018-08-15 06:40] VITALS: BP 109/64
[2018-08-15] MEDS: ENOXAPARIN 40 MG/0.4 ML SQ SCH (08:20)
[2018-08-15 12:20] VITALS: BP 109/72
[2018-08-15 19:45] VITALS: BP 100/69
[2018-08-15] MEDS: NICOTINE 14MG/24 HR PATCH.TD24 TD SCH (21:26)
[2018-08-16 01:56] VITALS: BP 120/86
[2018-08-16] MEDS: AMPICILLIN/SULBACTAM 3 GM in SODIUM CHLORIDE 0.9% 100 ML IV SCH ×4 (03:02→21:19)
[2018-08-16] MEDS: OMEPRAZOLE 20 MG CAPSULE.DR PO SCH ×2 (05:56→16:00)
[2018-08-16 07:58] VITALS: BP_SYST 120; BP_SYST 96; BP_DIAS 62; BP_DIAS 86
[2018-08-16] MEDS: ENOXAPARIN 40 MG/0.4 ML SQ SCH (09:00)
[2018-08-16 13:00] VITALS: BP 110/61
[2018-08-16] MEDS: NICOTINE 14MG/24 HR PATCH.TD24 TD SCH (21:20)
[2018-08-16 23:30] VITALS: BP 113/75
[2018-08-17 02:43] VITALS: BP 98/63
[2018-08-17] MEDS: AMPICILLIN/SULBACTAM 3 GM in SODIUM CHLORIDE 0.9% 100 ML IV SCH ×4 (03:09→21:24)
[2018-08-17] MEDS: OMEPRAZOLE 20 MG CAPSULE.DR PO SCH ×2 (04:59→16:00)
[2018-08-17 07:23] VITALS: BP 108/68
[2018-08-17] MEDS: ENOXAPARIN 40 MG/0.4 ML SQ SCH (09:00)
[2018-08-17 13:16] VITALS: BP 113/70
[2018-08-17 19:58] VITALS: BP 107/57
[2018-08-17] MEDS: NICOTINE 14MG/24 HR PATCH.TD24 TD SCH (21:24)
[2018-08-18 02:20] VITALS: BP 103/66
[2018-08-18] MEDS: AMPICILLIN/SULBACTAM 3 GM in SODIUM CHLORIDE 0.9% 100 ML IV SCH ×4 (03:30→21:15)
[2018-08-18 04:53] LABS: BASOPHILS # (AUTO) 0.02 x10^3/uL (0-0.1); BASOPHILS % (AUTO) 0 % (0-1); EOSINOPHILS % (AUTO) 5 % (1-7); LYMPHOCYTES # (AUTO) 1.87 x10^3/uL (1-3.4); LYMPHOCYTES % (AUTO) 34 % (22-44); MD NO; MEAN CORPUSCULAR HEMOGLOBIN 32.1 pg (27.5-34.5); MEAN CORPUSCULAR HGB CONC 34.4 g/dL (33.2-36.2); MEAN CORPUSCULAR VOLUME 93.4 fL (81-97); MONOCYTES # (AUTO) 0.66 x10^3/uL (0.2-0.8); MONOCYTES % (AUTO) 12 % (2-9); NEUTROPHILS # (AUTO) 2.72 x10^3/uL (1.8-6.8); NEUTROPHILS % (AUTO) 49 % (42-75); PLATELET COUNT 226 x10^3/uL (130-400); RED CELL DISTRIBUTION WIDTH 12.5 % (9.4-14.8)
[2018-08-18 05:04] LABS: ALANINE AMINOTRANSFERASE 31 U/L (12-78); ALBUMIN 3.8 g/dL (3.4-5.0); ANION GAP 8 mmol/L (5-15); CALCIUM 8.9 mg/dL (8.5-10.1); CHLORIDE 106 mmol/L (98-107)
[2018-08-18 05:05] LABS: CREATININE 1.04 mg/dL (0.7-1.3)
[2018-08-18 05:06] LABS: ALKALINE PHOSPHATASE 73 U/L (45-117); BILIRUBIN,TOTAL 0.5 mg/dL (0.2-1.0); CREATININE 1.04 mg/dL (0.7-1.3); TOTAL PROTEIN 7.2 g/dL (6.4-8.2)
[2018-08-18] MEDS: OMEPRAZOLE 20 MG CAPSULE.DR PO SCH ×2 (05:57→15:25)
[2018-08-18] MEDS: ENOXAPARIN 40 MG/0.4 ML SQ SCH (07:07)
[2018-08-18 07:24] VITALS: BP 127/77
[2018-08-18 14:10] VITALS: BP 122/90
[2018-08-18 19:59] VITALS: BP 106/72
[2018-08-18] MEDS: NICOTINE 14MG/24 HR PATCH.TD24 TD SCH (21:15)
[2018-08-19 01:59] VITALS: BP 102/56
[2018-08-19] MEDS: AMPICILLIN/SULBACTAM 3 GM in SODIUM CHLORIDE 0.9% 100 ML IV SCH (03:10)
[2018-08-19] MEDS: OMEPRAZOLE 20 MG CAPSULE.DR PO SCH ×2 (05:54→16:38)
[2018-08-19 07:12] VITALS: BP 102/68
[2018-08-19] MEDS: ENOXAPARIN 40 MG/0.4 ML SQ SCH (08:02)
[2018-08-19] MEDS: AMOXICILLIN/CLAV 875-125MG TABLET PO SCH ×2 (09:03→18:42)
[2018-08-19 13:09] VITALS: BP 100/65
[2018-08-19] MEDS ORDERED: AMOX1TAB12 PO (16:50)
[2018-08-19] MEDS ORDERED: NICO-486 TD (16:50)
[2018-08-19] MEDS ORDERED: OMEP-110 PO (16:50)
== END 2018-08-19 18:50 | disposition home or self-care (01) | DRG 497 ==
LOC: ED 19:10 → EDIP 19:11 → 4NOR 20:01
PROVIDERS: ADMIT Internal Medicine; ATTEND Internal Medicine
PROC: 0NPW04Z Removal of Internal Fixation Device from Facial Bone, Open Approach (ICD-10-PCS; principal; 2018-07-08 14:30)
PROC: 0NPW04Z Removal of Internal Fixation Device from Facial Bone, Open Approach (ICD-10-PCS; 2018-07-10)
PROC: 0NBV0ZZ Excision of Left Mandible, Open Approach (ICD-10-PCS; 2018-07-10)
PROC: 0CDWXZ1 Extraction of Upper Tooth, Multiple, External Approach (ICD-10-PCS; 2018-07-10)
PROC: 02HV33Z Insertion of Infusion Device into Superior Vena Cava, Percutaneous Approach (ICD-10-PCS; 2018-07-13)
PROC: B5181ZA Fluoroscopy of Superior Vena Cava using Low Osmolar Contrast, Guidance (ICD-10-PCS; 2018-07-13)
PROC: B548ZZA Ultrasonography of Superior Vena Cava, Guidance (ICD-10-PCS; 2018-07-13)
DX: T84.098A Other mechanical complication of other internal joint prosthesis, initial encounter (principal); M27.2 Inflammatory conditions of jaws; K05.6 Periodontal disease, unspecified; F17.210 Nicotine dependence, cigarettes, uncomplicated; F15.10 Other stimulant abuse, uncomplicated; Y84.8 Other medical procedures as the cause of abnormal reaction of the patient, or of later complication, without mention of misadventure at the time of the procedure; Z91.19 Patient's noncompliance with other medical treatment and regimen; Z91.14 Patient's other noncompliance with medication regimen; Z83.3 Family history of diabetes mellitus; Z82.49 Family history of ischemic heart disease and other diseases of the circulatory system; Z79.2 Long term (current) use of antibiotics; Z59.0 Homelessness; Z71.6 Tobacco abuse counseling; Y92.89 Other specified places as the place of occurrence of the external cause
CPT/HCPCS: 36415; 36573; 70150; 70486; 80048; 80053; 82040; 82565; 83605; 83735; 84100; 84145; 85025; 85651; 86140; 86480; 86803; 87015; 87040; 87070; 87075; 87076; 87102; 87116; 87205; 87206; 87806; 90656; 93005; 93306; 96365; 96366; 99285; G0378; J0295; J1335; J1650; J2250; J2405; J2543; J2704; J2710; J2997; J3010; J3370; J3490; C1751; G0475; J7030; J7050

== ENCOUNTER 2019-03-09 09:46 | Emergency (ER) | payer MEDICAID ==
[~2019-03-09] VITALS: Ht 182.9 cm; Wt 86.8 kg
[~2019-03-09 09:46] MED LIST changes: +AMOX1TAB12 PO; +NICO-486 TD; +OMEP-110 PO
[2019-03-09 10:00] VITALS: BP 140/79
[2019-03-09] MEDS ORDERED: [UNRECOGNIZED DRUG - OTHER] PO (10:21)
--- NOTE | 2019-03-09 10:44 | NUR ---
Patient/Caregiver given discharge instructions and they have confirmed that they understand the instructions. Patient ambulatory with steady gait.
== END 2019-03-09 10:46 | disposition home or self-care (01) ==
LOC: ED 10:35
DX: L03.116 Cellulitis of left lower limb (principal); B86 Scabies; F17.210 Nicotine dependence, cigarettes, uncomplicated
CPT/HCPCS: 99283

== ENCOUNTER 2019-03-30 17:45 | Emergency (ER) | payer MEDICAID ==
[~2019-03-30] VITALS: Ht 182.9 cm; Wt 90.2 kg
[~2019-03-30 17:45] MED LIST changes: +[UNRECOGNIZED DRUG - OTHER] PO
[2019-03-30 17:46] VITALS: BP 130/74
[2019-03-30] MEDS ORDERED: DIPH,PERTUSS(ACELL),TET VAC/PF 0.5 ML IM-VACC ONE ×2 (18:14→18:30)
[2019-03-30] MEDS ORDERED: HYDROXYZINE PAMOATE 50MG CAP PO ONE (18:30)
== END 2019-03-30 18:30 | disposition home or self-care (01) ==
LOC: ED 18:05
DX: T14.8XXA Other injury of unspecified body region, initial encounter (principal); L03.818 Cellulitis of other sites; R21 Rash and other nonspecific skin eruption; F17.200 Nicotine dependence, unspecified, uncomplicated; X58.XXXA Exposure to other specified factors, initial encounter; Y93.89 Activity, other specified; Y92.89 Other specified places as the place of occurrence of the external cause; Y99.8 Other external cause status
CPT/HCPCS: 90471; 90715; 99283

== ENCOUNTER 2019-04-11 18:58 | Emergency (ER) | payer MEDICAID ==
[~2019-04-11] VITALS: Ht 182.9 cm; Wt 89.3 kg
[2019-04-11 19:01] VITALS: BP 161/99
--- NOTE | 2019-04-11 19:19 | NUR ---
Patient into room, RN followed shortly behind. Patient complains of bugs crawling out of his mouth and "balls." RN cannot visualize any bugs crawling anywhere on patient's body. Patient has multiple sores over entire body, some sores are reddened and scabbed over but RN does not visualize any purulent drainage. Patient reports is on antibiotics for a skin infection. 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
== END 2019-04-11 19:46 ==
LOC: ED 19:40
DX: Z48.01 Encounter for change or removal of surgical wound dressing (principal); Z72.9 Problem related to lifestyle, unspecified
CPT/HCPCS: 99283

== ENCOUNTER 2019-10-16 03:02 | Emergency (ER) | payer SELFPAY ==
[~2019-10-16] VITALS: Ht 182.9 cm; Wt 86.9 kg
[2019-10-16 03:05] VITALS: BP 133/87
[2019-10-16] MEDS ORDERED: FLUORESCEIN OPHTHALMIC 1 MG STRIP ONE (03:29)
[2019-10-16] MEDS ORDERED: PROPARACAINE OPHTH 0.5%, 15ML ONE (03:29)
[2019-10-16] MEDS ORDERED: PROPARACAINE OPHTH 0.5%, 15ML EACHEYE ONE (03:30)
[2019-10-16] MEDS ORDERED: FLUORESCEIN/BENOXINATE 5 ML DROPS OP ONE (03:30)
== END 2019-10-16 04:21 | disposition home or self-care (01) ==
LOC: ED 04:14
DX: H10.022 Other mucopurulent conjunctivitis, left eye (principal); F17.200 Nicotine dependence, unspecified, uncomplicated
CPT/HCPCS: 99283